=== PATIENT | female | born 1970 | race Two or more races ===

== ENCOUNTER 2022-09-09 14:08 | Inpatient (IN) | payer MEDICAID, OTHER ==
[~2022-09-09] VITALS: Ht 160 cm; Wt 105.9 kg
[2022-09-09] MEDS ORDERED: CLINDAMYCIN 900MG IV 50 ML IV ONE (16:15)
[2022-09-09] MEDS ORDERED: cefTRIAXone 1GM/50ML D5W 50 ML IV ONE (16:15)
[2022-09-09 16:22] LABS: Basophils # (auto) 0.2 10 ^3/uL (0-0.2); Eosinophils # (auto) 0.1 10 ^3/uL (0-0.8); Eosinophils % (auto) 0.6 % (0.0-7.0); Hemoglobin 12.7 g/dL (12.2-16.2); Lymphocytes # (auto) 2.9 10 ^3/uL (0.4-5.4)
[2022-09-09 16:24] LABS: Basophils % (auto) 0.7 % (0.0-2.0); Hematocrit 39.7 % (36.0-46.0); Lymphocytes % (auto) 13.6 % (10.0-50.0); Mean Corpuscular Hemoglobin 26.4 pg (28.0-32.0); Mean Corpuscular Hgb Conc. 31.9 g/dL (32.0-36.0); Mean Corpuscular Volume 82.6 fL (80.0-100.0); Monocytes # (auto) 1.7 10 ^3/uL (0-1.3); Monocytes % (auto) 7.8 % (0.0-12.0); Neutrophils # (auto) 16.4 10 ^3/uL (1.6-8.6); Neutrophils % (auto) 77.3 % (37.0-80.0); Red Blood Cells 4.81 10^6/uL (4.0-5.20); Red Cell Distribution Width 15.3 % (11.8-14.3); White Blood Cell 21.3 10^3/uL (4.4-10.8)
[2022-09-09 16:41] LABS: Albumin 3.4 g/dL (3.4-5.0); Calcium 9.9 mg/dL (8.5-10.1); Potassium 3.7 mmol/L (3.5-5.1)
[2022-09-09 16:45] LABS: BUN/Creatinine Ratio 12.8; Bilirubin, Total 0.6 mg/dL (0.2-1.0)
[2022-09-09] MEDS ORDERED: SODIUM CHLORIDE 0.9% 1,000 ML IV ONE (17:00)
[2022-09-09 17:21] LABS: Urine Bacteria FEW /hpf (None Seen); Urine Blood Negative /uL (Negative); Urine Mucus FEW (None Seen); Urine Specific Gravity 1.035 (1.001-1.035); Urine WBC 14 /hpf (0 - 5)
[2022-09-09] MEDS ORDERED: HYDROcodone-ACET 10/325MG TAB PO ONE (18:15)
[2022-09-09] MEDS ORDERED: DOCUSATE SOD 100 MG CAP PO PRN (18:30)
[2022-09-09] MEDS ORDERED: ONDANSETRON HCL 4 MG/2 ML VIAL IV PRN (18:30)
[2022-09-09] MEDS ORDERED: MORPHINE SULFATE INJ 2 MG/ml SYRG IV PRN (18:30)
[2022-09-09] MEDS ORDERED: DEXTROSE (50%) 50ML SYRG IV PRN (18:30)
[2022-09-09] MEDS ORDERED: VANCOMYCIN 1GM/250ML 250 ML IV ONE (19:45)
[2022-09-09] MEDS: ACCU-CHEK COMFORT CURVE STRIP VI SCH (23:51)
[2022-09-09] MEDS: InsuLIN REG 1unit/0.01ml Soln (100units/ml) SC SCH (23:54)
[2022-09-10] MEDS: HYDROcodone-ACET 5/325MG TAB PO PRN ×2 (00:14→08:34)
[2022-09-10] MEDS: CLINDAMYCIN 600MG IV 50 ML IV SCH ×3 (02:23→18:14)
[2022-09-10] MEDS: ACCU-CHEK COMFORT CURVE STRIP VI SCH ×4 (08:29→22:02)
[2022-09-10] MEDS: InsuLIN REG 1unit/0.01ml Soln (100units/ml) SC SCH ×4 (08:30→22:00)
[2022-09-10] MEDS ORDERED: ASCO500C5 OR (10:04)
[2022-09-10] MEDS ORDERED: GLIP5TAB12 PO (10:04)
[2022-09-10] MEDS ORDERED: METF-372 PO (10:04)
[2022-09-10] MEDS ORDERED: MAGN400T40 OR (10:04)
[2022-09-10] MEDS ORDERED: SITA100T7 PO (10:04)
[2022-09-10] MEDS ORDERED: ATOR20TA50 PO (10:04)
[2022-09-10 10:23] LABS: Basophils # (auto) 0.1 10 ^3/uL (0-0.2); Eosinophils # (auto) 0.2 10 ^3/uL (0-0.8); Lymphocytes # (auto) 2.4 10 ^3/uL (0.4-5.4); Neutrophils % (auto) 76.6 % (37.0-80.0)
[2022-09-10 10:24] LABS: Basophils % (auto) 0.6 % (0.0-2.0); Hematocrit 36.7 % (36.0-46.0); Mean Corpuscular Hemoglobin 26.9 pg (28.0-32.0); Mean Corpuscular Hgb Conc. 32.6 g/dL (32.0-36.0); Mean Corpuscular Volume 82.5 fL (80.0-100.0); Monocytes # (auto) 1.7 10 ^3/uL (0-1.3); Monocytes % (auto) 8.8 % (0.0-12.0); Neutrophils # (auto) 14.4 10 ^3/uL (1.6-8.6); Red Blood Cells 4.45 10^6/uL (4.0-5.20); Red Cell Distribution Width 15.4 % (11.8-14.3); White Blood Cell 18.8 10^3/uL (4.4-10.8)
[2022-09-10 10:29] LABS: INR 1.03 (0.9-1.15); Partial Thromboplastin Time 28.2 sec (24.6-33.4)
[2022-09-10] MEDS: cefTRIAXone 1GM/50ML D5W 50 ML IV SCH (10:43)
[2022-09-10] MEDS: PANTOPRAZOLE 40 MG/10 ML VIAL INJ IV SCH (10:54)
[2022-09-10 11:07] LABS: Potassium 3.6 mmol/L (3.5-5.1)
[2022-09-10 11:13] LABS: Albumin 3.3 g/dL (3.4-5.0); BUN/Creatinine Ratio 11.1; Bilirubin, Total 0.6 mg/dL (0.2-1.0); Calcium 9.5 mg/dL (8.5-10.1)
[2022-09-10 16:09] VITALS: BP 123/62
[2022-09-10 20:00] VITALS: BP 147/67
[2022-09-10 22:00] VITALS: BP 147/67
[2022-09-10] MEDS ORDERED: ACETAMINOPHEN 325 MG TAB PO ONE (22:45)
[2022-09-11] VITALS (7 sets, daily range): BP systolic 103–122; BP diastolic 47–72
[2022-09-11] MEDS: CLINDAMYCIN 600MG IV 50 ML IV SCH ×3 (02:07→18:22)
[2022-09-11 06:19] LABS: Basophils # (auto) 0.1 10 ^3/uL (0-0.2); Basophils % (auto) 0.6 % (0.0-2.0); Monocytes # (auto) 1.7 10 ^3/uL (0-1.3)
[2022-09-11 06:21] LABS: Eosinophils # (auto) 0.1 10 ^3/uL (0-0.8); Eosinophils % (auto) 0.7 % (0.0-7.0); Hematocrit 35.9 % (36.0-46.0); Hemoglobin 11.7 g/dL (12.2-16.2); Lymphocytes # (auto) 3.4 10 ^3/uL (0.4-5.4); Lymphocytes % (auto) 17.2 % (10.0-50.0); Mean Corpuscular Hemoglobin 26.9 pg (28.0-32.0); Mean Corpuscular Hgb Conc. 32.5 g/dL (32.0-36.0); Mean Corpuscular Volume 82.6 fL (80.0-100.0); Monocytes % (auto) 8.6 % (0.0-12.0); Neutrophils # (auto) 14.4 10 ^3/uL (1.6-8.6); Neutrophils % (auto) 72.9 % (37.0-80.0); Red Blood Cells 4.34 10^6/uL (4.0-5.20); White Blood Cell 19.7 10^3/uL (4.4-10.8)
[2022-09-11] MEDS: ACCU-CHEK COMFORT CURVE STRIP VI SCH ×4 (06:36→21:38)
[2022-09-11] MEDS: InsuLIN REG 1unit/0.01ml Soln (100units/ml) SC SCH ×4 (06:37→21:45)
[2022-09-11] MEDS ORDERED: BUPIVACAINE W/ EPINEPH 0.25% INJ 50ML MDV ONE (07:01)
[2022-09-11] MEDS ORDERED: KETAMINE 50mg/ML 10ml Vial (500mg/10ml) IV ONE (07:15)
[2022-09-11] MEDS ORDERED: ceFAZolin 1GM/50ML 100 ML IV ONE (07:18)
[2022-09-11] MEDS ORDERED: LIDOCAINE 2% (LOCAL ANESTH.) PF 5ml SDV ONE (07:27)
[2022-09-11] MEDS ORDERED: PROPOFOL 10 MG/ML 20 ML IV ONE ×2 (07:27→07:50)
[2022-09-11] MEDS ORDERED: KETOROLAC TROMETH 30 MG/ML 1ML VIAL ONE (07:28)
[2022-09-11] MEDS ORDERED: fentaNYL CITRATE 100 MCG/2 ML VL ONE (07:28)
[2022-09-11] MEDS ORDERED: DexAMETHasone SOD PHOS 10MG/1ML VIAL INJ ONE (07:28)
[2022-09-11] MEDS ORDERED: GLYCOPYRROLATE 0.2 MG/ML 1ML VIAL ONE (07:28)
[2022-09-11] MEDS ORDERED: ONDANSETRON HCL 4 MG/2 ML VIAL ONE (07:28)
[2022-09-11] MEDS ORDERED: LIDOCAINE 1% (LOCAL ANESTH.) PF 5ml SDV ONE (07:33)
[2022-09-11] MEDS ORDERED: ESMOLOL HCL 10 ML IV ONE (07:55)
[2022-09-11] MEDS ORDERED: InsuLIN REG 1unit/0.01ml Soln (100units/ml) ONE (08:39)
[2022-09-11] MEDS ORDERED: HYDROmorphone HCL 2 MG/ML VL/or syr IV PRN (08:45)
[2022-09-11] MEDS ORDERED: LABETALOL HCL 5 MG/ML 4ML SYRINGE IV PRN (08:45)
[2022-09-11] MEDS ORDERED: fentaNYL CITRATE 100 MCG/2 ML VL IV PRN (08:45)
[2022-09-11] MEDS ORDERED: ONDANSETRON HCL 4 MG/2 ML VIAL IV PRN (08:45)
[2022-09-11] MEDS ORDERED: InsuLIN REG 1unit/0.01ml Soln (100units/ml) SC ONE (08:45)
[2022-09-11] MEDS ORDERED: ePHEDrine SULFATE 50 MG/ML AMP IV PRN (08:45)
[2022-09-11] MEDS ORDERED: NALOXONE HCL 0.4 MG/ML VIAL IV PRN (08:45)
[2022-09-11] MEDS ORDERED: hydrALAZINE HCL 20 MG/ML VL IV PRN (08:45)
[2022-09-11] MEDS ORDERED: FLUMAZENIL 0.1 MG/ML INJ 10ML MDV IV PRN (08:45)
[2022-09-11] MEDS: cefTRIAXone 1GM/50ML D5W 50 ML IV SCH (09:38)
[2022-09-11] MEDS: PANTOPRAZOLE 40 MG/10 ML VIAL INJ IV SCH (09:38)
[2022-09-11 11:13] LABS: Chloride 101 mmol/L (98-107); Potassium 3.8 mmol/L (3.5-5.1); Sodium 138 mmol/L (136-145)
[2022-09-11 11:41] LABS: Alanine Aminotransferase 54 U/L (13-56); Alkaline Phosphatase 166 U/L (45-117); Anion Gap 17 (5-15); Aspartate Aminotransferase 39 U/L (15-37); BUN/Creatinine Ratio 12.5; Bilirubin, Total 0.5 mg/dL (0.2-1.0); Blood Urea Nitrogen 7 mg/dL (7-18); Calcium 9.2 mg/dL (8.5-10.1); Carbon Dioxide 20 mmol/L (21-32); GFR African American 147 mL/min; GFR Non-African American 121 mL/min; Glucose 181 mg/dL (74-106); Total Protein 7.6 g/dL (6.4-8.2)
[2022-09-12] VITALS (7 sets, daily range): BP systolic 99–120; BP diastolic 46–60
[2022-09-12] MEDS: CLINDAMYCIN 600MG IV 50 ML IV SCH ×3 (02:00→18:00)
[2022-09-12 05:17] LABS: Eosinophils # (auto) 0 10 ^3/uL (0-0.8); Eosinophils % (auto) 0.1 % (0.0-7.0); Hemoglobin 10.4 g/dL (12.2-16.2); Neutrophils # (auto) 13.8 10 ^3/uL (1.6-8.6)
[2022-09-12 05:20] LABS: Basophils # (auto) 0.1 10 ^3/uL (0-0.2); Basophils % (auto) 0.7 % (0.0-2.0); Hematocrit 32.9 % (36.0-46.0); Lymphocytes # (auto) 2.7 10 ^3/uL (0.4-5.4); Mean Corpuscular Hemoglobin 25.8 pg (28.0-32.0); Mean Corpuscular Hgb Conc. 31.5 g/dL (32.0-36.0); Mean Corpuscular Volume 82.2 fL (80.0-100.0); Monocytes # (auto) 1.2 10 ^3/uL (0-1.3); Monocytes % (auto) 6.7 % (0.0-12.0); Neutrophils % (auto) 77.5 % (37.0-80.0); Red Blood Cells 4.01 10^6/uL (4.0-5.20); White Blood Cell 17.8 10^3/uL (4.4-10.8)
[2022-09-12 05:38] LABS: Albumin 2.6 g/dL (3.4-5.0); BUN/Creatinine Ratio 20.8; Calcium 9.4 mg/dL (8.5-10.1); Potassium 4.1 mmol/L (3.5-5.1)
[2022-09-12 05:41] LABS: Bilirubin, Total 0.3 mg/dL (0.2-1.0); Total Protein 6.4 g/dL (6.4-8.2)
[2022-09-12] MEDS: ACCU-CHEK COMFORT CURVE STRIP VI SCH ×4 (06:11→21:48)
[2022-09-12] MEDS: InsuLIN REG 1unit/0.01ml Soln (100units/ml) SC SCH ×4 (06:13→21:50)
[2022-09-12] MEDS: cefTRIAXone 1GM/50ML D5W 50 ML IV SCH (08:29)
[2022-09-12] MEDS: PANTOPRAZOLE 40 MG/10 ML VIAL INJ IV SCH (09:55)
[2022-09-12] MEDS: HYDROcodone-ACET 5/325MG TAB PO PRN ×2 (09:56→14:32)
[2022-09-13] MEDS: CLINDAMYCIN 600MG IV 50 ML IV SCH ×2 (02:00→11:14)
[2022-09-13 05:42] VITALS: BP 102/42
[2022-09-13 06:11] LABS: Basophils # (auto) 0.1 10 ^3/uL (0-0.2); Eosinophils # (auto) 0.1 10 ^3/uL (0-0.8); Hemoglobin 10.9 g/dL (12.2-16.2); Nucleated Red Blood Cells % 0.1 %; Red Cell Distribution Width 15.1 % (11.8-14.3)
[2022-09-13 06:13] LABS: Basophils % (auto) 1.2 % (0.0-2.0); Eosinophils % (auto) 1.3 % (0.0-7.0); Hematocrit 33.4 % (36.0-46.0); Lymphocytes # (auto) 4.3 10 ^3/uL (0.4-5.4); Lymphocytes % (auto) 43.4 % (10.0-50.0); Mean Corpuscular Hgb Conc. 32.7 g/dL (32.0-36.0); Mean Corpuscular Volume 82.7 fL (80.0-100.0); Monocytes # (auto) 0.9 10 ^3/uL (0-1.3); Monocytes % (auto) 9.4 % (0.0-12.0); Neutrophils # (auto) 4.5 10 ^3/uL (1.6-8.6); Neutrophils % (auto) 44.7 % (37.0-80.0); Red Blood Cells 4.04 10^6/uL (4.0-5.20)
[2022-09-13 06:27] LABS: Albumin 2.5 g/dL (3.4-5.0); Potassium 3.9 mmol/L (3.5-5.1)
[2022-09-13 06:29] LABS: BUN/Creatinine Ratio 21.8
[2022-09-13 06:32] LABS: Bilirubin, Total 0.2 mg/dL (0.2-1.0)
[2022-09-13] MEDS: ACCU-CHEK COMFORT CURVE STRIP VI SCH ×2 (06:33→12:24)
[2022-09-13] MEDS: InsuLIN REG 1unit/0.01ml Soln (100units/ml) SC SCH ×2 (06:38→11:30)
[2022-09-13 08:00] VITALS: BP 113/50
[2022-09-13 08:35] VITALS: BP 113/50
[2022-09-13] MEDS ORDERED: CLIN300C8 PO (09:49)
[2022-09-13] MEDS: cefTRIAXone 1GM/50ML D5W 50 ML IV SCH (10:18)
[2022-09-13 11:05] VITALS: BP 113/50
[2022-09-13] MEDS: HYDROcodone-ACET 5/325MG TAB PO PRN (11:14)
== END 2022-09-13 12:29 | disposition home or self-care (01) | DRG 226 ==
LOC: ER 14:08 → OVERFLOW 18:29 → CENTRAL 09-10 15:27
PROVIDERS: ADMIT Nurse Practitioner Family; ATTEND Internal Medicine Pulmonary Disease
PROC: 0D9Q0ZZ Drainage of Anus, Open Approach (ICD-10-PCS; principal; 2022-09-11 07:45)
DX: K61.39 Other ischiorectal abscess (principal); K76.0 Fatty (change of) liver, not elsewhere classified; E11.9 Type 2 diabetes mellitus without complications; D72.829 Elevated white blood cell count, unspecified; E66.01 Morbid (severe) obesity due to excess calories; E78.5 Hyperlipidemia, unspecified; L02.31 Cutaneous abscess of buttock; L03.317 Cellulitis of buttock; R74.01 Elevation of levels of liver transaminase levels; Z68.41 Body mass index [BMI] 40.0-44.9, adult; K61.0 Anal abscess; Z79.84 Long term (current) use of oral hypoglycemic drugs
CPT/HCPCS: 36415; 71045; 72192; 80053; 81001; 82962; 83036; 83605; 84702; 85025; 85610; 85730; 86850; 86900; 86901; 87040; 87070; 87075; 87076; 87077; 87186; 87205; 87426; 93005; 96365; 96366; 96367; 96372; 96375; C9113; G0378; J0690; J0696; J1100; J1815; J1885; J2001; J2405; J2704; J3490

== ENCOUNTER 2024-07-22 13:09 | Emergency (ER) | payer MEDICAID ==
[~2024-07-22] VITALS: Ht 157.5 cm; Wt 100.0 kg
[~2024-07-22 13:09] MED LIST: ATOR20TA50 PO; CLIN1CAP70 PO; GLIP5TAB21 PO; METF-372 PO; SITA100T7 PO
[2024-07-22 15:05] VITALS: BP 169/93; PULSE 87; RESP 17; TEMP 98.7; O2SAT 95
[2024-07-22] MEDS: HYDROcodone-ACET 5/325MG TAB PO ONE (15:10)
[2024-07-22] MEDS ORDERED: NAP500T GT (15:17)
== END 2024-07-22 16:19 | disposition home or self-care (01) ==
LOC: ER 13:09
DX: S80.01XA Contusion of right knee, initial encounter (principal); S80.02XA Contusion of left knee, initial encounter; E11.9 Type 2 diabetes mellitus without complications; Z79.899 Other long term (current) drug therapy; W18.09XA Striking against other object with subsequent fall, initial encounter; Y93.89 Activity, other specified; Y92.89 Other specified places as the place of occurrence of the external cause; Y99.8 Other external cause status
CPT/HCPCS: 73564

== ENCOUNTER 2025-06-09 14:07 | Inpatient (IN) | payer MEDICAID ==
[~2025-06-09] VITALS: Ht 160 cm; Wt 106.0 kg
[~2025-06-09 14:07] MED LIST changes: +NAP500T GT
--- NOTE | 2025-06-09 14:55 | ED.PDOC ---
GI ASSESSMENT HPI Comments This is a 55 year-old female, with a PMHX of external hemorrhoids, who presents to the ED with a chief complaint of intense rectal pain for X2 days. No trauma or injury. Patient states she has an upcoming surgery for the external hemorrhoids on July 03. Therapies tried: none. Patient has no further complaints at this time and otherwise denies further associated symptoms of nausea, vomiting, abdominal pain, blood streaked stool, dysuria, or hematuria. Chief Complaint: Rectal Pain Time Seen by MD: 14:52 Primary Care Provider: NONE Reviewed Notes: Nurses Notes, Medications, Allergies Allergies: Coded Allergies: No Known Drug Allergy (Verified Allergy, Unknown, 09/09/22) Home Meds Active Scripts Naproxen (NAPROSYN TABLET) 500 Mg Tb, 500 MG GT BID for 10 Days, #20 TAB Prov:JOAQUIN BAIG MD 07/22/24 Clindamycin Hcl (Clindamycin Hcl) 300 Mg Cap, 1 CAP PO TID, #21 CAP Prov:AIDAN TORRES MD 09/13/22 Reported Medications Atorvastatin Calcium (ATORVASTATIN CALCIUM) 20 Mg Tab, 1 TAB PO DAILY, #30 TAB 5 Refills 09/10/22 Metformin Hydrochloride (Metformin Hcl) 1,000 Mg Tab, 1 TAB PO BID, #60 TAB 5 Refills 09/10/22 Glipizide (Glipizide) 5 Mg Tab, 1 TAB PO DAILY, #60 TAB 3 Refills 09/10/22 Sitagliptin Phosphate (Januvia) 100 Mg Tab, 1 TAB PO DAILY, #30 TAB 5 Refills 09/10/22 Information Source: Patient Mode of Arrival: Ambulatory Timing: Days Duration: Since onset Prehospital treatment: None Severity: Moderate Associated sign and symptoms: Other (rectal pain ) Past Medical History PAST MEDICAL HISTORY: DM Past Medical History (Other): Hemorrhoids Surgical History: Denies all surgeries 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: Denies all 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 Hx Family History Family History: Reviewed,noncontributory to illness Social History Smoker: Non-Smoker Alcohol: Denies ETOH Use Drugs: Denies Drug Use Lives In: Home Constitutional: denies: chills, diaphoresis, fatigue, fever, malaise, sweats, weakness, others EENTM: denies: blurred vision, double vision, ear bleeding, ear discharge, ear drainage, ear pain, ear ringing, eye pain, eye redness, hearing loss, mouth pain, mouth swelling, nasal discharge, nose bleeding, nose congestion, nose pain, photophobia, tearing, throat pain, throat swelling, voice changes, others Respiratory: denies: cough, hemoptysis, orthopnea, SOB at rest, shortness of breath, SOB with excertion, stridor, wheezing, others Cardiovascular: denies: chest pain, dizzy spells, diaphoresis, Dyspnea on exertion, edema, irregular heart beat, left arm pain, lightheadedness, palpitations, PND, syncope, others Gastrointestinal: reports: rectal pain; denies: abdomen distended, abdominal pain, blood streaked bowels, constipated, diarrhea, dysphagia, difficulty swallowing, hematemesis, melena, nausea, poor appetite, poor fluid intake, rect al bleeding, vomiting, others Genitourinary: denies: abnormal vagina bleeding, burning, dyspareunia, dysuria, flank pain, frequency, hematuria, incontinence, pain, , vagina discharge, urgency, others Neurological: denies: dizziness, fainting, headache, left sided numbness, left sided weakness, numbness, paresthesia, pre-existing deficit, right sided numbness, right sided weakness, seizure, speech problems, tingling, tremors, weakness, others Musculoskeletal: denies: back pain, gout, joint pain, joint swelling, muscle pain, muscle stiffness, neck pain, others Integumetry: denies: bruises, change in color, change in hair/nails, dryness, laceration, lesions, lumps, rash, wounds, others Allergic/Immunocompromised: denies: Difficulty Healing, Frequent Infections, Hives, Itching, others Hematologic/Lymphatic: denies: anemia, blood clots, easy bleeding, easy bruising, swollen glands, others Endocrine: denies: excessive hunger, excessive sweating, excessive thirst, excessive urination, flushing, intolerance to cold, intolerance to heat, unexplained weight gain, unexplained weight loss, others Psychiatric: denies: anxiety, bipolar disorder, depression, hopeless, panic disorder, schizophrenia, sleepless, suicidal, others All Other Systems: Reviewed and Negative Physical Exam General Appearance: Mild Distress, Normal HEENT: Normal ENT Inspection, Pharynx Normal, TMs Normal Neck: Full Range of Motion, Non-Tender, Normal, Normal Inspection Respiratory: Chest Non-Tender, Lungs Clear, No Accessory Muscle Use, No Respiratory Distress, Normal Breath Sounds Cardiovascular: No Murmur, No Gallop, Regular Rate/Rhythm Breast Exam: Deferred Gastrointestinal: No Organomegaly, Non Tender, No Pulsatile Mass, Normal Bowel Sounds, Soft Genitalia: Deferred Pelvic: Deferred Rectal: Hemorrhoids, Other (rectal tone intact; 2cm firm nodule tender to palpation, no fluxuance ) Extremities: No calf tenderness, Normal capillary refill, Normal inspection, Normal range of motion, Non-tender, No pedal edema Musculoskeletal : Apperance: Normal Neurologic: Alert, keller machine operator II-XII nml as Tested, No Motor Deficits, Normal Affect, Normal Mood, No Sensory Deficits Cerebellar Function: Normal Reflexes: Normal Skin: Dry, Normal Color, Warm Lymphatic: No Adenopathy Was a procedure done? Was a procedure done?: No GI differential Dx Differential Diagnosis: Gastroenteritis, Bacterial, Parasitic, Viral, Other (Hemorrhoids) X-Ray, Labs, Meds, VS Vital Signs Date Time Temp Pulse Resp B/P (MAP) Pulse Ox O2 Delivery O2 Flow Rate FiO2 06/09/25 14:09 98.1 107 19 149/99 95 98.1 Lab Test 06/09/25 15:05 Range/Units White Blood Count 10.6 4.4-10.8 10^3/uL Red Blood Count 4.79 4.0-5.20 10^6/uL Hemoglobin 12.9 12.2-16.2 g/dL Hematocrit 39.1 36.0-46.0 % Mean Corpuscular Volume 81.6 80.0-100.0 fL Mean Corpuscular Hemoglobin 27.0 L 28.0-32.0 pg Mean Corpuscular Hemoglobin Concent 33.1 32.0-36.0 g/dL Red Cell Distribution Width 15.7 H 11.8-14.3 % Platelet Count 383 140-450 10^3/uL Mean Platelet Volume 8.8 6.9-10.8 fL Neutrophils (%) (Auto) 61.8 37.0-80.0 % Lymphocytes (%) (Auto) 28.6 10.0-50.0 % Monocytes (%) (Auto) 8.1 0.0-12.0 % Eosinophils (%) (Auto) 0.6 0.0-7.0 % Basophils (%) (Auto) 0.9 0.0-2.0 % Neutrophils # (Auto) 6.6 1.6-8.6 10 ^3/uL Lymphocytes # (Auto) 3.0 0.4-5.4 10 ^3/uL Monocytes # (Auto) 0.9 0-1.3 10 ^3/uL Eosinophils # (Auto) 0.1 0-0.8 10 ^3/uL Basophils # (Auto) 0.1 0-0.2 10 ^3/uL Nucleated Red Blood Cells 0.0 % Sodium Level 136 136-145 mmol/L Potassium Level 3.7 3.5-5.1 mmol/L Chloride Level 99 98-107 mmol/L Carbon Dioxide Level 27 20-31 mmol/L Anion Gap 10 5-15 Blood Urea Nitrogen 6 L 9-23 mg/dL Creatinine 0.63 0.550-1.02 mg/dL Glomerular Filtration Rate Calc 105 >90 mL/min BUN/Creatinine Ratio 9.5 L 10.0-20.0 Serum Glucose 247 H 74-106 mg/dL Calcium Level 9.7 8.7-10.4 mg/dL PATIENT: PAULY HADLEYCT: [id number]: [id number] : 1970 LOC: ER ROOM / BED: / AGE / SEX: 55 / F ADM STATUS: REG ER SERVICE 1604 ORDERING PHYSICIAN: BUNNY GARCIA NP PROCEDURE(s): ABPLIV - CT AB PEL WITH IV CON ONLY REASON: Left buttock pain ORDER NUMBER(s): [id number], ACCESSION NUMBER(s): [id number] COMPUTERIZED TOMOGRAPHY ABDOMEN AND PELVIS WITH CONTRAST REASON FOR EXAM: Left buttock pain COMPARISON: PELVIS WO CONTRAST on DOS: 09/10/22 TECHNIQUE: The exam was performed on a Multidetector scanner. Spiral scans were acquired from the diaphragm to the symphysis pubis after administration of IV contrast. 2-D coronal and sagittal reformatted images were provided. Radiation optimization: All CT scans at this facility use at least one of these dose optim ization techniques: Automated exposure control mA and/or kV adjustment per patient size (includes targeted exams where dose is matched to clinical indication) or iterative reconstruction. CONTRAST ADMINISTRATION: 100 mL Isovue 300 intravenously RADIATION DOSE: CTDI: 24 mGy DLP: 1355 mGy-cm FINDINGS: There is a 5 mm calcified granuloma in the right middle lobe. There is minimal linear atelectasis in the lingula. There is no pleural effusion. There is no pericardial effusion. The spleen is not enlarged. The liver is diffusely hypoattenuating. The liver is enlarged at 21.6 cm in length. No focal hepatic lesion is identified. The portal vein is patent. The gallbladder is not distended. No calcified gallstone is identified. The pancreas is within normal limits. The adrenal glands are normal. The kidneys enhance symmetrically. No solid renal mass is identified. T here is no hydronephrosis of either kidney. The urinary bladder is unremarkable. The uterus and ovaries are within normal limits. There is a 2.6 cm left ovarian follicle. There is no free fluid identified in the abdomen or pelvis. There is no pathologic lymphadenopathy by size criteria. The colonic stool burden is insignificant. The appendix is normal. There is no distention of the small bowel to suggest obstruction. There is a partially visualized 2.0 x 2.9 cm peripherally enhancing abscess within the subcutaneous fat of the inferior right gluteal region. There is suggestion of a tract extending superiorly from the abscess toward the right aspect of the anus. No acute osseous abnormality is identified. IMPRESSION: There is a 2.9 cm abscess within the subcutaneous fat of the inferior right gluteal region. There is a suggestion of a tract extending superiorly from the abscess toward the anus suggesting possible perianal fistula. Further evaluation for perianal fistula is recommended with a specific pelvic MRI study designed for that indication. Hepatomegaly ATED BY: ADRIANO PANDEY MD DICTATED DATE/TIME: 06/09/251731 SIGNED BY: ADRIANO PANDEY MD SIGNED DATE/TIME: 06/09/251731 CC: X-Ray, Labs, Meds, VS Comment Patient arrives alert and oriented, ABC's intact, afebrile, vital signs stable, saturating well in room air Peripheral IV insertion+ labs were ordered. CBC was ordered to exclude anemia, blood loss, or infection. BMP was ordered to exclude electrolyte abnormalities, renal failure, dehydration, hyperglycemia Urinalysis was ordered to rule out UTI or hematuria. Lactic Acid and Blood cultures ordered Diagnostic imaging ordered by me and results interpreted by radiology : There is a 2.9 cm abscess within the subcutaneous fat of the inferior right gluteal region. There is a suggestion of a tract extending superiorly from the abscess toward the anus suggesting possible perianal fistula. Further evaluation for perianal fistula is recommended with a specific pelvic MRI study designed for that indication. Patients work up was remarkable for the above findings The patient's workup reveals that the patient needs further evaluation and/or treatment for the above medical conditions. Pt will be started on broad-spectrum antibiotics. Ordered Rocephin and vancomycin per pharmacy. Patient verbalized understanding of the above and is awaiting further evaluation by the admitting service. Images Reviewed?: Images reviewed and evaluated by me Time of 1ST Reevaluation: 15:02 Reevaluation 1ST: Unchanged Patient Education/Counseling: Diagnosis, Treatment, Need For Follow Up Family Education/Counseling: No Family Present Medical Screening: No EMC Exist At This Time SEPSIS Sepsis Screen Date sepsis recognized/suspect: Jun 09, 2025 Time Sepsis recognized/suspect: 1409 Recent Procedure: No On Antibiotic Therapy: No Respiratory Rate >20: No Heart Rate >90: Yes Temp<36 C (96.8 F) or >38.3 C: No SBP <90 or MAP <65 mmHG: No New Acute Mental Status Change: No Is the patient on CPAP, BIPAP,: No Physician Orders Heplock Iv (06/09/25 ) Ct Ab Pel With Iv Con Only (06/09/25 16:04) Vital Signs Date Time Temp Pulse Resp B/P (MAP) Pulse Ox O2 Delivery O2 Flow Rate FiO2 06/09/25 14:09 98.1 107 19 149/99 95 98.1 Laboratory Tests Test 06/09/25 15:05 White Blood Count 10.6 10^3/uL (4.4-10.8) Departure 1 Departure Time of Disposition: 17:48 Impression: Primary Impression: Gluteal abscess Additional Impression: Perianal fistula Disposition: ADMITTED INPATIENT Condition: Serious Critical Care Note Critical Care Time?: No Stability Stability form required: No Heart Score Heart Score: Heart Score Response (Comments) Value History N/A 0 EKG N/A 0 Age N/A 0 Risk Factors N/A 0 Troponin N/A 0 Total 0 I personally scribed for BUNNY GARCIA NP ([email or web address]) on 06/09/25 at 14:55. Elect ronically submitted by Elaina Rice ([facility]). BUNNY GARCIA NP Jun 09, 2025 14:55
[2025-06-09 15:37] LABS: Hematocrit 39.1 % (36.0-46.0); Hemoglobin 12.9 g/dL (12.2-16.2); Mean Corpuscular Hemoglobin 27.0 pg (28.0-32.0); Mean Corpuscular Volume 81.6 fL (80.0-100.0); Nucleated Red Blood Cells % 0.0 %
[2025-06-09 15:42] LABS: Anion Gap 10 (5-15); Carbon Dioxide 27 mmol/L (20-31); Chloride 99 mmol/L (98-107); Potassium 3.7 mmol/L (3.5-5.1); Sodium 136 mmol/L (136-145)
[2025-06-09 15:44] LABS: Calcium 9.7 mg/dL (8.7-10.4)
[2025-06-09 15:48] LABS: BUN/Creatinine Ratio 9.5 (10.0-20.0)
[2025-06-09 15:49] LABS: Blood Urea Nitrogen 6 mg/dL (9-23); Glucose 247 mg/dL (74-106)
[2025-06-09] MEDS: IOHEXOL 300 MG/ML 100ML BOTTLE IJ ONE (16:42)
--- NOTE | 2025-06-09 17:34 | DVH ---
COMPUTERIZED TOMOGRAPHY ABDOMEN AND PELVIS WITH CONTRAST REASON FOR EXAM: Left buttock pain COMPARISON: PELVIS WO CONTRAST on DOS: 09/10/22 TECHNIQUE: The exam was performed on a Multidetector scanner. Spiral scans were acquired from the lilia phragm to the symphysis pubis after administration of IV contrast. 2-D coronal and sagittal reformatt ed images were provided. Radiation optimization: All CT scans at this facility use at least one of th devi dose optimization techniques: Automated exposure control mA and/or kV adjustment per patient size (includes targeted exams where dose is matched to clinical indication) or iterative reconstruction. CONTRAST ADMINISTRATION: 100 mL Isovue 300 intravenously RADIATION DOSE: CTDI: 24 mGy DLP: 1355 mGy-cm FINDINGS: There is a 5 mm calcified granuloma in the right middle lobe. There is minimal linear atelectasis in the lingula. There is no pleural effusion. There is no pericardial effusion. The spleen is not enlarged. The liver is diffusely hypoattenuating. The liver is enlarged at 21.6 cm in length. No focal hepatic lesion is identified. The portal vein is patent. The gallbladder is not distended. No calcified gallstone is identified. The pancreas is within normal limits. The adrenal g lands are normal. The kidneys enhance symmetrically. No solid renal mass is identified. There is no hydronephrosis of either kidney. The urinary bladder is unremarkable. The uterus and ovaries are with in normal limits. There is a 2.6 cm left ovarian follicle. There is no free fluid identified in the a bdomen or pelvis. There is no pathologic lymphadenopathy by size criteria. The colonic stool burden is insignificant. The appendix is normal. There is no distention of the small bowel to suggest obstru ction. There is a partially visualized 2.0 x 2.9 cm peripherally enhancing abscess within the subcuta neous fat of the inferior right gluteal region. There is suggestion of a tract extending superiorly from the abscess toward the right aspect of the anus. No acute osseous abnormality is identified. IMPRESSION: There is a 2.9 cm abscess within the subcutaneous fat of the inferior right gluteal region. There is a suggestion of a tract extending superiorly from the abscess toward the anus suggesting possible per ianal fistula. Further evaluation for perianal fistula is recommended with a specific pelvic MRI stud y designed for that indication. Hepatomegaly
[2025-06-09] MEDS: SODIUM CHLORIDE 0.9% 1,000 ML IV ONE ×2 (18:00→23:09)
[2025-06-09] MEDS ORDERED: VANCOMYCIN PER PHARMACY 0 MG IV SCH (18:00)
[2025-06-09] MEDS: cefTRIAXone 1GM/50ML D5W 50 ML IV ONE (19:30)
[2025-06-09] MEDS ORDERED: MORPHINE SULFATE INJ 2 MG/ml SYRG IV PRN (19:45)
[2025-06-09] MEDS ORDERED: ONDANSETRON HCL 4 MG/2 ML VIAL IV PRN (19:45)
[2025-06-09] MEDS ORDERED: DEXTROSE (50%) 50ML SYRG IV PRN ×2 (19:45)
[2025-06-09 20:09] LABS: INR 0.97 (0.9-1.15); Partial Thromboplastin Time 26.8 SEC (24.5-34.5); Prothrombin Time 10.3 sec (9.3-11.8)
--- NOTE | 2025-06-09 22:38 | DVHHP2 ---
History of Present Illness Reason for Visit: Rectal pain History of Present Illness 55-year-old female presents for evaluation of rectal pain. Patient reports a two day history of worsening rectal pain. She reports having a history of external hemorrhoids and is having an upcoming surgery on July 03. Denies melena. No abdominal pain. No fever or chills. Past Medical History Hemorrhoids, diabetes mellitus Past Surgical History Denies Family History Noncontributory Smoke: No ALCOHOL: none Drugs: None Lives: with Family Review of Systems Review of Systems Review of systems are currently negative otherwise addressed in HPI. Allergies: Coded Allergies: No Known Drug Allergy (Verified Allergy, Unknown, 09/09/22) Medications Current Medications Medications Dose Ordered Sig/Braeden Route Start Time Stop Time Status Last Admin Dose Admin Vancomycin HCl 0 ml @ 0 mls/hr UD IV 06/09/25 18:00 Vancomycin HCl 250 ml @ 250 mls/hr Q12H IV 06/09/25 18:00 Cefepime HCl 50 ml @ 12.5 mls/hr Q12HR IV 06/09/25 22:00 Pantoprazole Sodium 40 mg DAILY IV 06/10/25 10:00 Diagnostic Test (Pha) 1 strip Q6HR 06/10/25 00:00 UNV Insulin Human Regular Q6HR SC 06/10/25 00:00 Dextrose 50 ml UD PRN IV 06/09/25 19:45 UNV Diagnostic Test (Pha) 1 strip Q6HR 06/10/25 00:00 Insulin Human Regular Q6HR SC 06/10/25 00:00 UNV Dextrose 50 ml UD PRN IV 06/09/25 19:45 Ondansetron HCl 4 mg Q4HP PRN IV 06/09/25 19:45 Morphine Sulfate 2 mg Q4HPRN PRN IV 06/09/25 19:45 Exam Vital Signs Vital Signs Date Time Temp Pulse Resp B/P (MAP) Pulse Ox O2 Delivery O2 Flow Rate FiO2 06/09/25 20:14 99.3 113 20 143/82 (102) 95 99.3 Exam Gen: 55-year-old female in mild distress Skin: Warm, dry, normal color and texture, no rash. HEENT: Normocephalic atraumatic, mucous membranes moist and pink. Neck: Cervical and supraclavicular nodes normal without enlargement, trachea is midline, thyroid gland is normal without masses. Pulmonary: Clear to auscultation and percussion bilaterally. Cardiac: Regular rate and rhythm. No murmur Abdomen: Soft, nontender, nondistended, bowel sounds present all 4 quadrants, no guarding, no rigidity, no organomegaly. Extremities: No cyanosis, clubbing, no edema Neuro: Cranial nerves II through XII grossly intact, normal affect and speech, no focal motor deficits. Labs/Xrays ORDERING PHYSICIAN: BUNNY GARCIA NP PROCEDURE(s): ABPLIV - CT AB PEL WITH IV CON ONLY REASON: Left buttock pain ORDER NUMBER(s): [id number], ACCESSION NUMBER(s): [id number] COMPUTERIZED TOMOGRAPHY ABDOMEN AND PELVIS WITH CONTRAST REASON FOR EXAM: Left buttock pain COMPARISON: PELVIS WO CONTRAST on DOS: 09/10/22 TECHNIQUE: The exam was performed on a Multidetector scanner. Spiral scans were acquired from the diaphragm to the symphysis pubis after administration of IV contrast. 2-D coronal and sagittal reformatted images were provided. Radiation optimization: All CT scans at this facility use at least one of these dose optimization techniques: Automated exposure control mA and/or kV adjustment per patient size (includes targeted exams where dose is matched to clinical indication) or iterative reconstruction. CONTRAST ADMINISTRATION: 100 mL Isovue 300 intravenously RADIATION DOSE: CTDI: 24 mGy DLP: 1355 mGy-cm FINDINGS: There is a 5 mm calcified granuloma in the right middle lobe. There is minimal linear atelectasis in the lingula. There is no pleural effusion. There is no pericardial effusion. The spleen is not enlarged. The liver is diffusely hypoattenuating. The liver is enlarged at 21.6 cm in length. No focal hepatic lesion is identified. The portal vein is patent. The gallbladder is not distended. No calcified gallstone is identified. The pancreas is within normal limits. The adrenal glands are normal. The kidneys enhance symmetrically. No solid renal mass is identified. There is no hydronephrosis of either kidney. The urinary bladder is unremarkable. The uterus and ovaries are within normal limits. There is a 2.6 cm left ovarian follicle. There is no free fluid identified in the abdomen or pelvis. There is no pathologic lymphadenopathy by size criteria. The colonic stool burden is insignificant. The appendix is normal. There is no distention of the small bowel to suggest obstruction. There is a partially visualized 2.0 x 2.9 cm peripherally enhancing abscess within the subcutaneous fat of the inferior right gluteal region. There is suggestion of a tract extending superiorly from the abscess toward the right aspect of the anus. No acute osseous abnormality is identified. IMPRESSION: There is a 2.9 cm abscess within the subcutaneous fat of the inferior right gluteal region. There is a suggestion of a tract extending superiorly from the abscess toward the anus suggesting possible perianal fistula. Further evaluation for perianal fistula is recommended with a specific pelvic MRI study designed for that indication. Hepatomegaly ATED BY: ADRIANO FREIRE MD Labs Test 06/09/25 18:01 06/09/25 15:05 Range/Units Lactic Acid Level 1.2 0.4-2.0 mmol/L White Blood Count 10.6 4.4-10.8 10^3/uL Red Blood Count 4.79 4.0-5.20 10^6/uL Hemoglobin 12.9 12.2-16.2 g/dL Hematocrit 39.1 36.0-46.0 % Mean Corpuscular Volume 81.6 80.0-100.0 fL Mean Corpuscular Hemoglobin 27.0 L 28.0-32.0 pg Mean Corpuscular Hemoglobin Concent 33.1 32.0-36.0 g/dL Red Cell Distribution Width 15.7 H 11.8-14.3 % Platelet Count 383 140-450 10^3/uL Mean Platelet Volume 8.8 6.9-10.8 fL Neutrophils (%) (Auto) 61.8 37.0-80.0 % Lymphocytes (%) (Auto) 28.6 10.0-50.0 % Monocytes (%) (Auto) 8.1 0.0-12.0 % Eosinophils (%) (Auto) 0.6 0.0-7.0 % Basophils (%) (Auto) 0.9 0.0-2.0 % Neutrophils # (Auto) 6.6 1.6-8.6 10 ^3/uL Lymphocytes # (Auto) 3.0 0.4-5.4 10 ^3/uL Monocytes # (Auto) 0.9 0-1.3 10 ^3/uL Eosinophils # (Auto) 0.1 0-0.8 10 ^3/uL Basophils # (Auto) 0.1 0-0.2 10 ^3/uL Nucleated Red Blood Cells 0.0 % Prothrombin Time 10.3 9.3-11.8 sec Prothrombin Time INR 0.97 0.9-1.15 Activated Partial Thromboplast Time 26.8 24.5-34.5 SEC Sodium Level 136 136-145 mmol/L Potassium Level 3.7 3.5-5.1 mmol/L Chloride Level 99 98-107 mmol/L Carbon Dioxide Level 27 20-31 mmol/L Anion Gap 10 5-15 Blood Urea Nitrogen 6 L 9-23 mg/dL Creatinine 0.63 0.550-1.02 mg/dL Glomerular Filtration Rate Calc 105 >90 mL/min BUN/Creatinine Ratio 9.5 L 10.0-20.0 Serum Glucose 247 H 74-106 mg/dL Calcium Level 9.7 8.7-10.4 mg/dL SEPSIS Sepsis Screen Date sepsis recognized/suspect: Jun 09, 2025 Time Sepsis recognized/suspect: 2015 Recent Procedure: No On Antibiotic Therapy: Yes Respiratory Rate >20: No Heart Rate >90: Yes Temp<36 C (96.8 F) or >38.3 C: No SBP <90 or MAP <65 mmHG: No New Acute Mental Status Change: No Is the patient on CPAP, BIPAP,: No Physician Orders Heplock Iv (06/09/25 ) Ct Ab Pel With Iv Con Only (06/09/25 16:04) Blood Culture (06/09/25 17:40) Vancomycin Per Pharmacy (06/09/25 18:00) Vancomycin 1gm/250ml Kit (06/09/25 18:00) Vancomycin,Trough (06/11/25 05:00) Vancomycin Per Pharmacy Protoc (06/11/25 06:00) Creatinine (06/10/25 05:00) Creatinine (06/11/25 05:00) Admit (06/09/25 19:36) Cefepime 1gm/ 50ml (Maxipime 1gm/50ml) (06/09/25 22:00) * Surgical Consult (06/09/25 ) Sodium Chloride 0.9% (06/09/25 19:45) Pantoprazole (Protonix) (06/10/25 10:00) Basic Metabolic Panel (06/10/25 04:00) Insulin R (Human) (Insulin R) (06/10/25 00:00) Glucose Blood (Accu-Chek Comfort Curve T (06/10/25 00:00) Dextrose 50% Syringe (06/09/25 19:45) Ondansetron Hcl (Zofran) (06/09/25 19:45) Complete Blood Count (06/10/25 04:00) Npo (Nothing By Mouth) Diet (06/10/25 Breakfast) Condition: Stable (06/09/25 19:37) Bedrest With Bathroom Privileg (06/09/25 19:37) Morphine Sulfate Injection (06/09/25 19:45) Vital Signs Date Time Temp Pulse Resp B/P (MAP) Pulse Ox O2 Delivery O2 Flow Rate FiO2 06/09/25 20:14 99.3 113 20 143/82 (102) 95 99.3 Laboratory Tests Test 06/09/25 15:05 06/09/25 18:01 White Blood Count 10.6 10^3/uL (4.4-10.8) Lactic Acid Level 1.2 mmol/L (0.4-2.0) Medications Medications Dose Ordered Sig/Braeden Route Start Time Stop Time Status Last Admin Dose Admin Ceftriaxone Sodium 50 ml @ 100 mls/hr ONCE ONCE IV 06/09/25 18:00 06/09/25 18:29 DC 06/09/25 19:30 100 MLS/HR Sodium Chloride 1,000 ml @ 1,000 mls/hr Q1H ONCE IV 06/09/25 18:00 06/09/25 18:59 DC 06/09/25 18:00 1,000 MLS/HR Assessment/Plan Assessment/Plan Assessment Right gluteal abscess ? Perianal fistula Uncontrolled diabetes mellitus Plan Admit the patient to Med surge to the hospitalist Vancomycin/cefepime Surgical consultation Pain management NPO Continue treatment per orders. Plan discussed with: Patient My Orders Orders - ABRAHAN ROBERTS Procedure Category Date Status Time Admit ADMIT 06/09/25 Transmitted 19:36 Cefepime 1gm/ 50ml PHA 06/09/25 In Process (Maxipime 1gm/50ml) 22:00 * Surgical Consult CONS 06/09/25 Transmitted Sodium Chloride 0.9% PHA 06/09/25 In Process 19:45 Pantoprazole PHA 06/10/25 In Process (Protonix) 10:00 Basic Metabolic Panel LAB 06/10/25 Verified 04:00 Insulin R (Human) PHA 06/10/25 In Process (Insulin R) 00:00 Glucose Blood PHA 06/10/25 In Process (Accu-Chek Comfort 00:00 Dextrose 50% Syringe PHA 06/09/25 In Process 19:45 Ondansetron Hcl PHA 06/09/25 In Process (Zofran) 19:45 Complete Blood Count LAB 06/10/25 Verified 04:00 Npo (Nothing By DIET 06/10/25 Transmitted Mouth) Diet Breakfast Condition: Stable CHECO 06/09/25 In Process 19:37 Bedrest With Bathroom CHECO 06/09/25 In Process Privileg 19:37 Morphine Sulfate PHA 06/09/25 In Process Injection 19:45 Date of Service: Jun 09, 2025 Billing Provider: ABRAHAN ROBERTS Common Visit Codes: [id number] INP/OBS CARE (HIGH) ABRAHAN ROBERTS Jun 09, 2025 22:38
[2025-06-09 23:01] VITALS: BP 152/84; PULSE 115; RESP 18; TEMP 97.8; O2SAT 95
[2025-06-09] MEDS: CEFEPIME 1GM/ 50ML 50 ML IV SCH (23:09)
[2025-06-09] MEDS: ACCU-CHEK COMFORT CURVE STRIP VI SCH (23:09)
[2025-06-09] MEDS: InsuLIN REG 1unit/0.01ml Soln (100units/ml) SC SCH (23:15)
[2025-06-09 23:34] VITALS: BP 152/89; PULSE 115; RESP 17; TEMP 97.8; O2SAT 95
[2025-06-10] VITALS (8 sets, daily range): BP systolic 108–148; BP diastolic 69–90; PULSE 83–107; RESP 16–18; TEMP 97.1–97.9; O2SAT 96–97
[2025-06-10] MEDS ORDERED: ACCU-CHEK COMFORT CURVE STRIP VI SCH
[2025-06-10] MEDS ORDERED: InsuLIN REG 1unit/0.01ml Soln (100units/ml) SC SCH
[2025-06-10] MEDS: VANCOMYCIN 1GM/250ML KIT 250 ML IV SCH (04:58)
[2025-06-10 06:57] LABS: Chloride 105 mmol/L (98-107); Sodium 139 mmol/L (136-145)
[2025-06-10 06:58] LABS: Anion Gap 9 (5-15); Carbon Dioxide 25 mmol/L (20-31); Hematocrit 34.4 % (36.0-46.0); Hemoglobin 11.3 g/dL (12.2-16.2)
[2025-06-10 06:59] LABS: Calcium 8.6 mg/dL (8.7-10.4); Potassium 3.5 mmol/L (3.5-5.1)
[2025-06-10 07:00] LABS: Mean Corpuscular Hemoglobin 27.0 pg (28.0-32.0); Mean Corpuscular Volume 82.1 fL (80.0-100.0); Nucleated Red Blood Cells % 0.1 %
[2025-06-10 07:04] LABS: BUN/Creatinine Ratio 9.1 (10.0-20.0); Blood Urea Nitrogen < 5 mg/dL (9-23); Glucose 179 mg/dL (74-106)
[2025-06-10] MEDS: PANTOPRAZOLE 40 MG/10 ML VIAL INJ IV SCH (09:09)
[2025-06-10 11:25] LABS: Hepatitis B Surface Antigen Negative (Negative); Hepatitis C Antibody Negative (Negative)
--- NOTE | 2025-06-10 15:25 | DVHPN2 ---
Subjective Patient is here for right inferior gluteal abscess with a perianal fistula. Patient's initially presented to the hospital with rectal pain worsening for last 3-4 days. 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 Medications Current Medications Medications Dose Ordered Sig/Braeden Route Start Time Stop Time Status Last Admin Dose Admin Vancomycin HCl 0 ml @ 0 mls/hr UD IV 06/09/25 18:00 Vancomycin HCl 250 ml @ 250 mls/hr Q12H IV 06/09/25 18:00 06/10/25 06:00 250 MLS/HR Cefepime HCl 50 ml @ 12.5 mls/hr Q12HR IV 06/09/25 22:00 06/10/25 09:10 12.5 MLS/HR Pantoprazole Sodium 40 mg DAILY IV 06/10/25 10:00 Diagnostic Test (Pha) 1 strip Q6HR 06/10/25 00:00 UNV Insulin Human Regular Q6HR SC 06/10/25 00:00 06/10/25 12:24 4 UNITS Dextrose 50 ml UD PRN IV 06/09/25 19:45 UNV Diagnostic Test (Pha) 1 strip Q6HR 06/10/25 00:00 06/10/25 12:24 1 STRIP Insulin Human Regular Q6HR SC 06/10/25 00:00 UNV Dextrose 50 ml UD PRN IV 06/09/25 19:45 Ondansetron HCl 4 mg Q4HP PRN IV 06/09/25 19:45 Morphine Sulfate 2 mg Q4HPRN PRN IV 06/09/25 19:45 Laboratory Results Laboratory Tests 06/10/25 05:30 Chemistry Test 06/10/25 05:30 Calcium Level 8.6 mg/dL (8.7-10.4) L Assessment/Plan Assessment/Plan 55-year-old female with a known history of diabetes mellitus type 2, dyslipidemia who initially presented to the hospital with a rectal pain found to have 1. Right inferior gluteal abscess 2. Perianal fistula 3. External hemorrhoids 4. Diabetes mellitus type 2 5. Dyslipidemia -IV antibiotics, General surgery consultation. Plan discussed with: Patient Date of Service: Jun 10, 2025 Billing Provider: THOR BUSCH MD Common Visit Codes: [id number] INP/OBS CARE(MOD) THOR BUSCH MD Jun 10, 2025 15:25
[2025-06-11] VITALS (8 sets, daily range): BP systolic 130–156; BP diastolic 83–93; PULSE 84–96; RESP 16–21; TEMP 96.8–98.7; O2SAT 95–98
--- NOTE | 2025-06-11 14:40 | DVHINCON2 ---
Date of service: Jun 11, 2025 Reason for Consultation right gluteal abscess History of Present Illness HPI A 55-year-old female presented for evaluation of rectal pain. She reports that for the past two days, she has been having rectal pain that has progressively worsened. She also reports some drainage from the right gluteal area.patient is scheduled for surgery 07/03/2025 at another facility. Home Meds Active Scripts Naproxen (NAPROSYN TABLET) 500 Mg Tb, 500 MG GT BID for 10 Days, #20 TAB Prov:JOAQUIN BAIG MD 07/22/24 Clindamycin Hcl (Clindamycin Hcl) 300 Mg Cap, 1 CAP PO TID, #21 CAP Prov:AIDAN TORRES MD 09/13/22 Reported Medications Atorvastatin Calcium (ATORVASTATIN CALCIUM) 20 Mg Tab, 1 TAB PO DAILY, #30 TAB 5 Refills 09/10/22 Metformin Hydrochloride (Metformin Hcl) 1,000 Mg Tab, 1 TAB PO BID, #60 TAB 5 Refills 09/10/22 Glipizide (Glipizide) 5 Mg Tab, 1 TAB PO DAILY, #60 TAB 3 Refills 09/10/22 Sitagliptin Phosphate (Januvia) 100 Mg Tab, 1 TAB PO DAILY, #30 TAB 5 Refills 09/10/22 Past Medical History Cardiac: No pertinent Hx Pulmonary: No pertinent Hx Central Nervous System: No pertinent Hx GI: No pertinent Hx, Hemorrhoids Hemotology/Oncology: No pertinent Hx Hepatobiliary: No pertinent Hx Psychiatric: No pertinent Hx Musculoskeletal: No pertinent Hx Rheumotologic: No pertinent Hx Infectious Disease: No peritnent Hx ENT: No pertinent Hx Renal/: No pertinent Hx Endocrine: No pertinent Hx Dermatology: No pertinent Hx Past Surgical History: Other (right gluteal incision and drainage ) Patient Family History: Patient reports no known family medical history. Smoker: No Hx (Negative) Alocohol: None Drugs: None Lives with: With family Review of Systems Constitutional: No symptom reported Ears, Nose, & Throat: No symptom reported Eyes: No symptom reported Pulmonary/Respiratory: No symptom reported Cardiovascular: No symptom reported Gastrointestinal: Other (right gluteal/ rectal pain) Genitourinary: No symptom reported Musculoskeletal: No symptom reported Skin: No symptom reported Psychiatric: No symptom reported Endocrine: No symptom reported Hemotologic/Lymphatic: No symptom reported H&P Exam Vital Signs Vital Signs Date Time Temp Pulse Resp B/P (MAP) Pulse Ox O2 Delivery O2 Flow Rate FiO2 06/11/25 13:00 97.8 96 21 156/93 (114) 97 97.8 06/11/25 08:00 Room Air* 0 21 Labs/Xrays Labs Test 06/11/25 11:47 06/11/25 05:25 06/10/25 05:30 06/09/25 18:01 Range/Units POC Glucose 266 H 70-106 mg/dl Creatinine 0.57 0.550-1.02 mg/dL Glomerular Filtration Rate Calc 108 >90 mL/min Vancomycin Level Trough 6.0 5-10 ug/mL White Blood Count 9.2 4.4-10.8 10^3/uL Red Blood Count 4.19 4.0-5.20 10^6/uL Hemoglobin 11.3 L 12.2-16.2 g/dL Hematocrit 34.4 #L 36.0-46.0 % Mean Corpuscular Volume 82.1 80.0-100.0 fL Mean Corpuscular Hemoglobin 27.0 L 28.0-32.0 pg Mean Corpuscular Hemoglobin Concent 32.9 32.0-36.0 g/dL Red Cell Distribution Width 15.8 H 11.8-14.3 % Platelet Count 340 140-450 10^3/uL Mean Platelet Volume 8.7 6.9-10.8 fL Neutrophils (%) (Auto) 47.9 37.0-80.0 % Lymphocytes (%) (Auto) 39.0 10.0-50.0 % Monocytes (%) (Auto) 10.8 0.0-12.0 % Eosinophils (%) (Auto) 1.6 0.0-7.0 % Basophils (%) (Auto) 0.7 0.0-2.0 % Neutrophils # (Auto) 4.4 1.6-8.6 10 ^3/uL Lymphocytes # (Auto) 3.6 0.4-5.4 10 ^3/uL Monocytes # (Auto) 1.0 0-1.3 10 ^3/uL Eosinophils # (Auto) 0.1 0-0.8 10 ^3/uL Basophils # (Auto) 0.1 0-0.2 10 ^3/uL Nucleated Red Blood Cells 0.1 % Sodium Level 139 136-145 mmol/L Potassium Level 3.5 3.5-5.1 mmol/L Chloride Level 105 98-107 mmol/L Carbon Dioxide Level 25 20-31 mmol/L Anion Gap 9 5-15 Blood Urea Nitrogen < 5 L 9-23 mg/dL BUN/Creatinine Ratio 9.1 L 10.0-20.0 Serum Glucose 179 H 74-106 mg/dL Calcium Level 8.6 L 8.7-10.4 mg/dL Hepatitis B Surface Antigen Negative Negative Hepatitis C Antibody Negative Negative Lactic Acid Level 1.2 0.4-2.0 mmol/L Test 06/09/25 15:05 Range/Units Prothrombin Time 10.3 9.3-11.8 sec Prothrombin Time INR 0.97 0.9-1.15 Activated Partial Thromboplast Time 26.8 24.5-34.5 SEC Microbiology Date/Time Source Procedure Growth Status 06/09/25 18:01 Blood Blood Culture - Preliminary NO GROWTH AFTER 24 HOURS OF INCUBATION. Resulted Assessment/Plan Primary Diagnosis right gluteal abscess Plan - The area surrounding the lower right gluteal region is nontender. - The area directly over the external hemorrhoid was very tender to palpation. - No active drainage was noted during the examination. Investigations: - CT scan reviewed, showing a 2.9 cm abscess within the subcutaneous fat of the inferior right gluteal region. There is a suggestion of a tract extending superiorly from the abscess toward the anus, raising suspicion for a possible perianal fistula. - White blood cell count was within normal limits. Plan: - A discussion was held with Dr. Anderson. - Will continue with conservative management. - Plan includes application of warm compresses to the affected area. - Continue current course of IV antibiotics. Plan discussed with: Patient, Other Visit Coding Surgery Date of Service if different f: Jun 11, 2025 Billing Provider: BARRINGTON ANDERSON MD Surgery Visit Codes: [id number] - INP CONSULT <80 MIN CASTILLO PADILLA NP Jun 11, 2025 14:40
--- NOTE | 2025-06-11 16:20 | DVHPN2 ---
Subjective Patient is here for right inferior gluteal abscess with a perianal fistula. Patient's initially presented to the hospital with rectal pain worsening for last 3-4 days. 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 Medications Current Medications Medications Dose Ordered Sig/Braeden Route Start Time Stop Time Status Last Admin Dose Admin Vancomycin HCl 0 ml @ 0 mls/hr UD IV 06/09/25 18:00 Cefepime HCl 50 ml @ 12.5 mls/hr Q12HR IV 06/09/25 22:00 06/11/25 09:25 12.5 MLS/HR Pantoprazole Sodium 40 mg DAILY IV 06/10/25 10:00 Diagnostic Test (Pha) 1 strip Q6HR 06/10/25 00:00 UNV Insulin Human Regular Q6HR SC 06/10/25 00:00 06/11/25 13:07 6 UNITS Dextrose 50 ml UD PRN IV 06/09/25 19:45 UNV Diagnostic Test (Pha) 1 strip Q6HR 06/10/25 00:00 06/11/25 12:02 1 STRIP Insulin Human Regular Q6HR SC 06/10/25 00:00 UNV Dextrose 50 ml UD PRN IV 06/09/25 19:45 Ondansetron HCl 4 mg Q4HP PRN IV 06/09/25 19:45 Morphine Sulfate 2 mg Q4HPRN PRN IV 06/09/25 19:45 Vancomycin HCl 250 ml @ 200 mls/hr Q12H IV 06/11/25 18:00 Laboratory Results Laboratory Tests 06/10/25 05:30 06/11/25 05:25 Microbiology Microbiology Date/Time Source Procedure Growth Status 06/09/25 18:01 Blood Blood Culture - Preliminary NO GROWTH AFTER 24 HOURS OF INCUBATION. Resulted Assessment/Plan Assessment/Plan 55-year-old female with a known history of diabetes mellitus type 2, dyslipidemia who initially presented to the hospital with a rectal pain found to have 1. Right inferior gluteal abscess 2. Perianal fistula 3. External hemorrhoids 4. Diabetes mellitus type 2 5. Dyslipidemia -IV antibiotics, General surgery consultation. Plan discussed with: Patient My Orders Orders - THOR BUSCH MD Procedure Category Date Status Time Consistent DIET 06/10/25 Transmitted Carb(Ccho)Diabetes Dinner Date of Service: Jun 11, 2025 Billing Provider: THOR BUSCH MD Common Visit Codes: [id number] INP/OBS CARE(MOD) THOR BUSCH MD Jun 11, 2025 16:20
[2025-06-11] MEDS: VANCOMYCIN 1.25GM/250ML 250 ML IV SCH (17:57)
[2025-06-12 01:00] VITALS: BP 132/60; PULSE 82; RESP 15; TEMP 98.1; O2SAT 98
[2025-06-12 05:00] VITALS: BP 131/79; PULSE 78; RESP 16; TEMP 98.1; O2SAT 98
[2025-06-12 08:40] VITALS: BP 138/90; PULSE 76; RESP 19; TEMP 96.9; O2SAT 96
[2025-06-12 12:26] VITALS: BP 130/84; PULSE 82; RESP 20; TEMP 97; O2SAT 97
--- NOTE | 2025-06-12 12:53 | DVHPN2 ---
Progress Note - Surgical Date Seen: Jun 12, 2025 Post op day Post op day: 0 Subjective Patient reports: No new complaints (Patient states that abscess spontaneously drained yesterday and is feeling better), Feels better Review of Systems: Not Done Objective Vital signs Vital Sign Date Time Temp Pulse Resp B/P (MAP) Pulse Ox O2 Delivery O2 Flow Rate FiO2 06/12/25 12:26 97.0 82 20 130/84 (99) 97 97.0 06/11/25 20:00 Room Air* 0 21 Total Intake and Output 06/11/25 06/11/25 06/12/25 15:00 23:00 07:00 Intake Total 490 ml 1845 ml 1195 ml Output Total 800 ml Balance 490 ml 1845 ml 395 ml Medications Current Medications Medications Dose Ordered Sig/Braeden Route Start Time Stop Time Status Last Admin Dose Admin Vancomycin HCl 0 ml @ 0 mls/hr UD IV 06/09/25 18:00 Cefepime HCl 50 ml @ 12.5 mls/hr Q12HR IV 06/09/25 22:00 06/12/25 11:19 12.5 MLS/HR Pantoprazole Sodium 40 mg DAILY IV 06/10/25 10:00 06/12/25 11:16 40 MG Diagnostic Test (Pha) 1 strip Q6HR 06/10/25 00:00 UNV Insulin Human Regular Q6HR SC 06/10/25 00:00 06/12/25 12:29 4 UNITS Dextrose 50 ml UD PRN IV 06/09/25 19:45 UNV Diagnostic Test (Pha) 1 strip Q6HR 06/10/25 00:00 06/12/25 12:18 1 STRIP Insulin Human Regular Q6HR SC 06/10/25 00:00 UNV Dextrose 50 ml UD PRN IV 06/09/25 19:45 Ondansetron HCl 4 mg Q4HP PRN IV 06/09/25 19:45 Morphine Sulfate 2 mg Q4HPRN PRN IV 06/09/25 19:45 Vancomycin HCl 250 ml @ 200 mls/hr Q12H IV 06/11/25 18:00 06/12/25 05:40 200 MLS/HR Laboratory Laboratory Tests 06/12/25 06:41 06/10/25 05:30 Test 06/10/25 05:30 Range/Units Serum Glucose 179 H 74-106 mg/dL Microbiology Date/Time Source Procedure Growth Status 06/09/25 18:01 Blood Blood Culture - Preliminary NO GROWTH AFTER 48 HOURS OF INCUBATION. Resulted Examination: GENERAL:Normal, Any Other System: (Abnormal: Right gluteal induration at exit site of fistula tract, hypergranulation at the exit, no fluctuance, no drainage, no pus, no surrounding erythema) Labs and/or images reviewed: Labs reviewed by me, Image(s) reviewed by me (She has been normal limit. CT from admission they shows a 3 cm right gluteal abscess with a fistula tract extending to the anal canal.) Problem List/Assessment/Plan Problems: (1) Gluteal abscess Assessment and Plan A 55-year-old female who presented with a right buttock abscess due to fistula to the anal canal/rectum, as evidence on CT. Since admission patient has been on IV antibiotics an abscess spontaneously drained yesterday. Patient is from much better today. Patient has a hypergranulated fistula exit on the right buttock with surrounding induration, no active drainage or pus. Given that the patient has a surgery scheduled for July [address] Sol for this same problem and the infection is clearing at this point, will not be offering any surgeries at this point. She will have to follow up with her surgeon. 1. Okay to discharge 2. Augmentin 875 mg p.o. b.i.d. times 14 days 3. Continue with Sitz bath t.i.d. and p.r.n. with bowel movements 4. If infection returns, please visit the ED Plan discussed with Plan discussed with: Patient Visit Coding Surgery Date of Service if different f: Jun 12, 2025 Billing Provider: SEBAS URRUTIA MD Surgery Visit Codes: [id number] INP/OBS CARE(MOD) SEBAS URRUTIA MD Jun 12, 2025 12:52
[2025-06-12] MEDS ORDERED: AUG875T PO (16:44)
--- NOTE | 2025-06-12 16:45 | DVHDS2 ---
Discharge Summary Date of Admission Jun 09, 2025 at 19:36 Date of Discharge: Jun 12, 2025 Labs/Diagnostic Data: Laboratory Results Test 06/12/25 11:50 06/12/25 06:41 06/11/25 05:25 06/10/25 05:30 POC Glucose 227 mg/dl (70-106) Creatinine 0.54 mg/dL (0.550-1.02) Glomerular Filtration Rate Calc 109 mL/min (>90) Vancomycin Level Trough 6.0 ug/mL (5-10) White Blood Count 9.2 10^3/uL (4.4-10.8) Red Blood Count 4.19 10^6/uL (4.0-5.20) Hemoglobin 11.3 g/dL (12.2-16.2) Hematocrit 34.4 % (36.0-46.0) Mean Corpuscular Volume 82.1 fL (80.0-100.0) Mean Corpuscular Hemoglobin 27.0 pg (28.0-32.0) Mean Corpuscular Hemoglobin Concent 32.9 g/dL (32.0-36.0) Red Cell Distribution Width 15.8 % (11.8-14.3) Platelet Count 340 10^3/uL (140-450) Mean Platelet Volume 8.7 fL (6.9-10.8) Neutrophils (%) (Auto) 47.9 % (37.0-80.0) Lymphocytes (%) (Auto) 39.0 % (10.0-50.0) Monocytes (%) (Auto) 10.8 % (0.0-12.0) Eosinophils (%) (Auto) 1.6 % (0.0-7.0) Basophils (%) (Auto) 0.7 % (0.0-2.0) Neutrophils # (Auto) 4.4 10 ^3/uL (1.6-8.6) Lymphocytes # (Auto) 3.6 10 ^3/uL (0.4-5.4) Monocytes # (Auto) 1.0 10 ^3/uL (0-1.3) Eosinophils # (Auto) 0.1 10 ^3/uL (0-0.8) Basophils # (Auto) 0.1 10 ^3/uL (0-0.2) Nucleated Red Blood Cells 0.1 % Sodium Level 139 mmol/L (136-145) Potassium Level 3.5 mmol/L (3.5-5.1) Chloride Level 105 mmol/L (98-107) Carbon Dioxide Level 25 mmol/L (20-31) Anion Gap 9 (5-15) Blood Urea Nitrogen < 5 mg/dL (9-23) BUN/Creatinine Ratio 9.1 (10.0-20.0) Serum Glucose 179 mg/dL (74-106) Calcium Level 8.6 mg/dL (8.7-10.4) Hepatitis B Surface Antigen Negative (Negative) Hepatitis C Antibody Negative (Negative) Test 06/09/25 18:01 06/09/25 15:05 Lactic Acid Level 1.2 mmol/L (0.4-2.0) Prothrombin Time 10.3 sec (9.3-11.8) Prothrombin Time INR 0.97 (0.9-1.15) Activated Partial Thromboplast Time 26.8 SEC (24.5-34.5) Other Laboratory Tests 06/12/25 06:41 06/10/25 05:30 Brief Hx & Hospital Course: 55-year-old female with a known history of diabetes mellitus type 2, dyslipidemia who initially presented to the hospital with a rectal pain found to have right inferior gluteal abscess as well as perianal fistula. Patient also has a known history of external hemorrhoids. Patient was given IV antibiotics. General surgery was consulted who recommended outpatient follow up with the use p.o. antibiotics as well as status was. Patient is being discharged under stable condition. Condition at Discharge: Stable Final Diagnosis/Problems List 55-year-old female with a known history of diabetes mellitus type 2, dyslipidemia who initially presented to the hospital with a rectal pain found to have 1. Right inferior gluteal abscess 2. Perianal fistula 3. External hemorrhoids 4. Diabetes mellitus type 2 5. Dyslipidemia Discharge Disposition: Home SNF Discharge Will this Physician continue t: No Discharge Instruct/Medications Diet: Cardiac 2g Na,low cholest Activity: No Restrictions, As Tolerated Follow Up/Referral: Follow up with the PCP and general surgery in 1-2 weeks. Medications: Medication as prescribed. New Medications: Amoxicillin & Pot Clavulanate (Augmentin Tablet) 875 Mg Tb 875 MG PO BID for 14 Days, #28 TAB Continued Medications: Atorvastatin Calcium (Atorvastatin Calcium) 20 Mg Tab 1 TAB PO DAILY, #30 TAB 5 Refills Glipizide (Glipizide) 5 Mg Tab 1 TAB PO DAILY, #60 TAB 3 Refills Metformin Hydrochloride (Metformin Hcl) 1,000 Mg Tab 1 TAB PO BID, #60 TAB 5 Refills Naproxen (Naprosyn Tablet) 500 Mg Tb 500 MG GT BID for 10 Days, #20 TAB Sitagliptin Phosphate (Januvia) 100 Mg Tab 1 TAB PO DAILY, #30 TAB 5 Refills Discontinued Medications: Clindamycin Hcl (Clindamycin Hcl) 300 Mg Cap 1 CAP PO TID, #21 CAP Scheduled Amoxicillin & Pot Clavulanate (Augmentin Tablet), 875 MG PO BID Atorvastatin Calcium (Atorvastatin Calcium), 1 TAB PO DAILY, (Reported) Glipizide (Glipizide), 1 TAB PO DAILY, (Reported) Metformin Hydrochloride (Metformin Hcl), 1 TAB PO BID, (Reported) Naproxen (Naprosyn Tablet), 500 MG GT BID Sitagliptin Phosphate (Januvia), 1 TAB PO DAILY, (Reported) Discontinued Medications Clindamycin Hcl (Clindamycin Hcl), 1 CAP PO TID Discharge Statement: "Patient was advised to return to the ER or call 911 if any headaches, dizziness, shortness of breath, chest pain, abdominal pain, bleeding, fevers, or worsening of medical condition. Patient was counseled about treatment plan, medications, possible side effects, patientverbalized understanding. All questions were answered to the best of my ability. This discharge took greater then 30 minutes in planning, reviewing documentation, counseling the patient, and discussing with other team members." ASSESSMENT ASSESSMENT Assessment 55-year-old female with a known history of diabetes mellitus type 2, dyslipidemia who initially presented to the hospital with a rectal pain found to have 1. Right inferior gluteal abscess 2. Perianal fistula 3. External hemorrhoids 4. Diabetes mellitus type 2 5. Dyslipidemia Date of Service: Jun 12, 2025 Billing Provider: THOR BUSCH MD Common Visit Codes: 23240-ORV/OBS DISCH DAY >30min THOR BUSCH MD Jun 12, 2025 16:45
[2025-06-12 16:51] VITALS: BP 137/83; PULSE 85; RESP 17; TEMP 98; O2SAT 96
[2025-06-12 16:58] VITALS: TEMP 36.7
== END 2025-06-12 19:01 | disposition home or self-care (01) | DRG 254 ==
LOC: ER 14:07 → OVERFLOW 19:36 → WEST WING 22:53
PROVIDERS: ADMIT Internal Medicine; ATTEND Internal Medicine
DX: K60.30 Anal fistula, unspecified (principal); E11.9 Type 2 diabetes mellitus without complications; K64.4 Residual hemorrhoidal skin tags; E78.5 Hyperlipidemia, unspecified; L02.31 Cutaneous abscess of buttock; Z79.84 Long term (current) use of oral hypoglycemic drugs; Z87.891 Personal history of nicotine dependence
CPT/HCPCS: 36415; 74177; 80048; 80202; 82565; 82962; 83605; 85025; 85610; 85730; 86803; 87040; 87340; 96365; G0378; J1815; J2470